=== PATIENT | male | born 1965 | race Caucasian/White ===

== ENCOUNTER 2017-03-13 21:42 | Emergency (ER) | payer BC ==
[~2017-03-13 21:42] MED LIST: *UNABLE1; ASAB PO; EXCEDRIN TENSI1 EACH PO; GLUCOPHAGE1000 MG PO; IBU-200200 MG PO; LISINOPRIL40 MG PO; METFORMIN XR PO; NEUR600 PO; NOVOLOG SC; NOVOPEN SC; SIMVASTATIN PO; TOUJEO SC; ZOCOR20 PO
== END 2017-03-13 22:18 | disposition home or self-care (01) ==
LOC: ER 21:42
PROC: 2W3MX1Z Immobilization of Left Lower Extremity using Splint (ICD-10-PCS; principal; 2017-03-13)
DX: S86.912A Strain of unspecified muscle(s) and tendon(s) at lower leg level, left leg, initial encounter (principal); F17.200 Nicotine dependence, unspecified, uncomplicated; G43.909 Migraine, unspecified, not intractable, without status migrainosus; E11.9 Type 2 diabetes mellitus without complications; I25.2 Old myocardial infarction; I10 Essential (primary) hypertension; Z88.5 Allergy status to narcotic agent; Z79.899 Other long term (current) drug therapy; Z79.4 Long term (current) use of insulin; Z79.84 Long term (current) use of oral hypoglycemic drugs; X58.XXXA Exposure to other specified factors, initial encounter
CPT/HCPCS: 73560-LT; 99283